=== PATIENT | female | born 1960 | race Caucasian/White ===

== ENCOUNTER 2022-12-14 16:58 | Emergency (ER) | payer BC, MEDICARE ==
[2022-12-14 18:25] LABS: ESTIMATED GFR 10 mL/min (>60)
[2022-12-14] MEDS ORDERED: Insulin Lispro 100 Unit/ML 3 ML KwikPen SUBCUT STA (18:58)
[2022-12-14] MEDS ORDERED: Glucagon,Human Recombinant 1 MG Vial IM PRN (18:58)
[2022-12-14] MEDS ORDERED: Sodium Chloride 0.45% 1,000 ML IV SCH ×2 (19:00)
[2022-12-14] MEDS ORDERED: Insulin Lispro 100 Unit/ML 3 ML KwikPen SUBCUT ONE (19:10)
[2022-12-14] MEDS ORDERED: cefTRIAXone 1 GM Vial IVPUSH STA (19:20)
[2022-12-14] MEDS ORDERED: Aspirin 81 MG Tab.Chew PO STA (19:24)
[2022-12-14] MEDS ORDERED: Potassium Chloride 20 MEQ in Premix Bag 1 BAG IV ONE (19:26)
[2022-12-14] MEDS ORDERED: Heparin Sodium 5,000 Units/ML Vial IVPUSH STA (19:29)
[2022-12-14] MEDS ORDERED: cefTRIAXone 1 GM Vial ONE (19:41)
[2022-12-14] MEDS ORDERED: Heparin Sodium/0.45% NaCl 500 ML IV SCH (19:45)
== END 2022-12-14 20:50 ==
LOC: FB.ED 16:58
DX: E87.6 Hypokalemia (principal); E86.0 Dehydration; E87.1 Hypo-osmolality and hyponatremia; I24.9 Acute ischemic heart disease, unspecified; D64.9 Anemia, unspecified; E11.22 Type 2 diabetes mellitus with diabetic chronic kidney disease; N18.9 Chronic kidney disease, unspecified; E87.8 Other disorders of electrolyte and fluid balance, not elsewhere classified
CPT/HCPCS: 36415; 71045; 80053; 81001; 84484; 85025; 87086; 87088; 87186; 93005; 93010; 96361; 96365; 96368; 96375; 99285; 99285-25; A9270-GY; J0696; J1644; J1815; J3480; J7030

== ENCOUNTER 2022-12-20 12:12 | Inpatient (IN) | payer MEDICARE ==
[2022-12-20] MEDS ORDERED: Lactulose Soln 10 GM/15 ML 15 ML UD Cup PO PRN (16:11)
[2022-12-20] MEDS ORDERED: 50% Dextrose in Water 50 ML Syringe IVPUSH PRN (16:11)
[2022-12-20] MEDS ORDERED: Nitroglycerin 0.4 MG Tab.SL SL PRN (16:11)
[2022-12-20] MEDS ORDERED: Ondansetron 4 MG Tab.DIS PO PRN (16:11)
[2022-12-20] MEDS ORDERED: Glucagon,Human Recombinant 1 MG Vial IM PRN (16:11)
[2022-12-20] MEDS ORDERED: Acetaminophen/HYDROcodone 325-5 MG Tab PO PRN (16:34)
[2022-12-20] MEDS: [UNRECOGNIZED DRUG - OTHER] PO PRN (17:17)
[2022-12-20] MEDS ORDERED: Insulin Lispro 100 Unit/ML 3 ML KwikPen SUBCUT ONE (17:44)
[2022-12-20] MEDS: Insulin Lispro 100 Unit/ML 3 ML KwikPen SUBCUT SCH (17:45)
[2022-12-20] MEDS: Carvedilol 6.25 MG Tab PO SCH (17:48)
[2022-12-20] MEDS ORDERED: Levofloxacin 250 MG Tab PO SCH (18:00)
[2022-12-20] MEDS ORDERED: Insulin Glargine,Human Rec. Analog 100 Units/ML 3 ML Pen SUBCUT SCH (21:00)
[2022-12-20] MEDS ORDERED: Amiodarone 200 MG Tab PO SCH (21:00)
[2022-12-20] MEDS ORDERED: Rosuvastatin 20 MG Tab PO SCH (21:00)
[2022-12-20] MEDS: Apixaban 5 MG Tab PO SCH (21:45)
[2022-12-20] MEDS ORDERED: Insulin Glargine,Human Rec. Analog 100 Units/ML 3 ML Pen SUBCUT ONE (21:48)
[2022-12-21] MEDS: Insulin Lispro 100 Unit/ML 3 ML KwikPen SUBCUT SCH ×2 (07:46→11:06)
[2022-12-21] MEDS: Carvedilol 6.25 MG Tab PO SCH (07:47)
[2022-12-21] MEDS ORDERED: Clopidogrel 75 MG Tab PO SCH (09:00)
[2022-12-21] MEDS: Apixaban 5 MG Tab PO SCH (09:23)
[2022-12-21] MEDS: [UNRECOGNIZED DRUG - OTHER] PO PRN (09:23)
== END 2022-12-21 14:35 | disposition home health service (06) | DRG 947 ==
LOC: FB.MS 15:07
PROVIDERS: ADMIT Family Medicine; ATTEND Family Medicine
DX: R53.1 Weakness (principal); I21.A1 Myocardial infarction type 2; N17.9 Acute kidney failure, unspecified; E87.1 Hypo-osmolality and hyponatremia; L97.921 Non-pressure chronic ulcer of unspecified part of left lower leg limited to breakdown of skin; G61.81 Chronic inflammatory demyelinating polyneuritis; I50.32 Chronic diastolic (congestive) heart failure; I48.20 Chronic atrial fibrillation, unspecified; I13.0 Hypertensive heart and chronic kidney disease with heart failure and stage 1 through stage 4 chronic kidney disease, or unspecified chronic kidney disease; N30.01 Acute cystitis with hematuria; E86.0 Dehydration; E87.6 Hypokalemia; I25.10 Atherosclerotic heart disease of native coronary artery without angina pectoris; E83.42 Hypomagnesemia; L89.151 Pressure ulcer of sacral region, stage 1; L97.511 Non-pressure chronic ulcer of other part of right foot limited to breakdown of skin; I27.20 Pulmonary hypertension, unspecified; N18.32 Chronic kidney disease, stage 3b; E11.22 Type 2 diabetes mellitus with diabetic chronic kidney disease; E11.621 Type 2 diabetes mellitus with foot ulcer; S98.1 Traumatic amputation of one toe; S98.212 Complete traumatic amputation of two or more left lesser toes; Z79.4 Long term (current) use of insulin; Z79.899 Other long term (current) drug therapy
CPT/HCPCS: 82947; 97161-GP; 99305; 99315; A9270-GY; J1815; J1815-GY; Q0162

== ENCOUNTER 2024-03-29 09:30 | Emergency (ER) | payer MEDICARE ==
[2024-03-29 10:32] LABS: BASOPHILS ABSOLUTE AUTO 0.1 x10-3/uL (0.0-0.1); BASOPHILS PERCENT AUTO 1.1 % (0.2-1.5); EOSINOPHILS ABSOLUTE AUTO 0.2 x10-3/uL (0.0-0.8); EOSINOPHILS PERCENT AUTO 3.2 % (0.6-8.1); HEMATOCRIT 30.3 % (34.2-48.2); LYMPHOCYTES ABSOLUTE AUTO 0.8 x10-3/uL (1.0-4.4); LYMPHOCYTES PERCENT AUTO 14.7 % (18.4-52.1); MEAN CORPUSCULAR HEMOGLOBIN 30.3 pg (23.9-33.9); MEAN CORPUSCULAR HGB CONC 32.9 g/dL (31.9-34.8); MEAN CORPUSCULAR VOLUME 92.1 fL (76.7-100.5); MEAN PLATELET VOLUME 8.3 fL (7.1-12.4); MONOCYTES ABSOLUTE AUTO 0.5 x10-3/uL (0.3-1.0); MONOCYTES PERCENT AUTO 9.7 % (4.4-15.7); NEUTROPHILS PERCENT AUTO 71.3 % (30.8-76.2); PLATELET COUNT,PLT 186 x10(3)uL (151-488); RED CELL DISTRIBUTION WIDTH 17.1 % (12.3-16.5); WHITE BLOOD CELL COUNT,WBC 5.6 x10-3/uL (3.0-10.3)
[2024-03-29 10:44] LABS: A/G RATIO 0.7; ALANINE AMINOTRANSFERASE,ALT 32 U/L (12-36); ALBUMIN 2.7 g/dL (3.2-4.6); ALKALINE PHOSPHATASE 111 IU/L (56-112); ASPARTATE AMNIOTRANSFERASE,AST 42 IU/L (5-25); BILIRUBIN TOTAL 0.5 mg/dL (0.1-1.3); BLOOD UREA NITROGEN,BUN 33 mg/dL (7-18); BUN/CREATININE RATIO 14.3 (9-20); CALCIUM 8.7 mg/dL (8.6-10.2); CARBON DIOXIDE,CO2 31 mmol/L (21-32); CHLORIDE,CL 107 mmol/L (100-110); EST CRCL DRUG DOSING (CG) 20.17 mL/min; ESTIMATED GFR 23 mL/min (>60); GLUCOSE RANDOM 112 mg/dL (80-116); MAGNESIUM 2.8 mg/dL (1.8-2.5); POTASSIUM,K 4.5 mmol/L (3.5-5.3); PROTEIN TOTAL,TP 6.5 g/dL (6.0-8.0); SODIUM,NA 144 mmol/L (135-145)
[2024-03-29 10:48] LABS: CREATININE 2.3 mg/dL (0.55-1.02)
[2024-03-29 11:36] LABS: BILIRUBIN,URINE NEGATIVE (NEGATIVE); GLUCOSE,URINE NORMAL (NORMAL); KETONES,URINE NEGATIVE (NEGATIVE); LEUKOCYTE ESTERASE,URINE LARGE (NEGATIVE); NITRITE,URINE POSITIVE (NEGATIVE); OCCULT BLOOD,URINE NEGATIVE (NEGATIVE); PROTEIN,URINE NEGATIVE (NEGATIVE); UROBILINOGEN,URINE NORMAL (NEGATIVE)
[2024-03-29 11:38] LABS: APPEARANCE,URINE CLOUDY (CLEAR); BACTERIA,URINE MANY (NS); COLOR,URINE YELLOW (YELLOW); RBC,URINE 0-5 (0-5); SQUAMOUS EPITHELIAL CELLS,UR RARE (NS,R,O); WBC,URINE >100 (0-5)
[2024-03-29] MEDS: Sodium Chloride 0.9% 500 ML IV ONE (12:12)
[2024-03-29] MEDS: Sodium Chloride 0.9% 1,000 ML IV SCH (12:40)
[2024-03-29] MEDS: cefTRIAXone 1 GM Vial IVPUSH ONE (14:03)
== END 2024-03-29 15:00 ==
LOC: FB.ED 09:30
DX: N39.0 Urinary tract infection, site not specified (principal); R53.1 Weakness; R41.0 Disorientation, unspecified; R79.89 Other specified abnormal findings of blood chemistry; R29.6 Repeated falls; I10 Essential (primary) hypertension; I25.2 Old myocardial infarction; E11.9 Type 2 diabetes mellitus without complications; E66.9 Obesity, unspecified; Z90.49 Acquired absence of other specified parts of digestive tract; Z90.710 Acquired absence of both cervix and uterus; Z68.34 Body mass index [BMI] 34.0-34.9, adult; Z79.899 Other long term (current) drug therapy; Z79.4 Long term (current) use of insulin; Z88.0 Allergy status to penicillin; Z88.1 Allergy status to other antibiotic agents; Z88.6 Allergy status to analgesic agent; Z88.8 Allergy status to other drugs, medicaments and biological substances; Z91.048 Other nonmedicinal substance allergy status
CPT/HCPCS: 36415; 70450; 71045; 72125; 80053; 81001; 83605; 83735; 84484; 85025; 87040; 87086; 87088; 87186; 93005; 93010; 96361; 96374; 99285; J0696; J7030; J7040

== ENCOUNTER 2024-04-04 14:24 | Emergency (ER) | payer MEDICARE ==
[2024-04-04] MEDS ORDERED: Sodium Chloride 0.9% 10 ML Syringe FLUSH PRN (16:11)
[2024-04-04 16:44] LABS: EOSINOPHILS ABSOLUTE AUTO 0.3 x10-3/uL (0.0-0.8); HEMATOCRIT 29.6 % (34.2-48.2); HEMOGLOBIN 9.6 g/dL (11.4-15.5); LYMPHOCYTES ABSOLUTE AUTO 0.7 x10-3/uL (1.0-4.4); LYMPHOCYTES PERCENT AUTO 13.5 % (18.4-52.1); MEAN CORPUSCULAR HEMOGLOBIN 30.1 pg (23.9-33.9); MEAN CORPUSCULAR HGB CONC 32.3 g/dL (31.9-34.8); MEAN CORPUSCULAR VOLUME 93.1 fL (76.7-100.5); MEAN PLATELET VOLUME 8.4 fL (7.1-12.4); MONOCYTES ABSOLUTE AUTO 0.5 x10-3/uL (0.3-1.0); MONOCYTES PERCENT AUTO 10.2 % (4.4-15.7); NEUTROPHILS ABSOLUTE AUTO 3.3 x10-3/uL (1.5-6.3); NEUTROPHILS PERCENT AUTO 68.3 % (30.8-76.2); PLATELET COUNT,PLT 191 x10(3)uL (151-488); RED BLOOD CELL COUNT 3.18 x10(6)uL (3.60-5.20); RED CELL DISTRIBUTION WIDTH 16.7 % (12.3-16.5); WHITE BLOOD CELL COUNT,WBC 4.8 x10-3/uL (3.0-10.3)
[2024-04-04 16:47] LABS: BLOOD UREA NITROGEN,BUN 19 mg/dL (7-18); BUN/CREATININE RATIO 10.6 (9-20); CALCIUM 8.8 mg/dL (8.6-10.2); CARBON DIOXIDE,CO2 34 mmol/L (21-32); CHLORIDE,CL 108 mmol/L (100-110); CREATININE 1.8 mg/dL (0.55-1.02); ESTIMATED GFR 31 mL/min (>60); GLUCOSE RANDOM 114 mg/dL (80-116); POTASSIUM,K 4.2 mmol/L (3.5-5.3); SODIUM,NA 147 mmol/L (135-145)
[2024-04-04 16:55] LABS: APPEARANCE,URINE SLIGHTLY CLOUDY (CLEAR); BACTERIA,URINE MODERATE (NS); BILIRUBIN,URINE NEGATIVE (NEGATIVE); COLOR,URINE YELLOW (YELLOW); GLUCOSE,URINE NORMAL (NORMAL); KETONES,URINE NEGATIVE (NEGATIVE); LEUKOCYTE ESTERASE,URINE LARGE (NEGATIVE); NITRITE,URINE NEGATIVE (NEGATIVE); OCCULT BLOOD,URINE NEGATIVE (NEGATIVE); PROTEIN,URINE NEGATIVE (NEGATIVE); RBC,URINE 0-5 (0-5); SQUAMOUS EPITHELIAL CELLS,UR FEW (NS,R,O); UROBILINOGEN,URINE NORMAL (NEGATIVE); WBC,URINE 30-40 (0-5)
[2024-04-04 16:56] LABS: A/G RATIO 0.7; ALANINE AMINOTRANSFERASE,ALT 27 U/L (12-36); ALBUMIN 2.6 g/dL (3.2-4.6); ALKALINE PHOSPHATASE 96 IU/L (56-112); ASPARTATE AMNIOTRANSFERASE,AST 24 IU/L (5-25); BILIRUBIN TOTAL 0.8 mg/dL (0.1-1.3); PROTEIN TOTAL,TP 6.3 g/dL (6.0-8.0)
[2024-04-04 17:13] LABS: HEMOGLOBIN A1C 7.3 % (<5.7)
[2024-04-04 17:55] LABS: TROPONIN I 57.1 pg/mL (4.0-60.3)
== END 2024-04-04 17:43 ==
LOC: FB.ED 14:24
DX: I48.91 Unspecified atrial fibrillation (principal); I73.9 Peripheral vascular disease, unspecified; I13.0 Hypertensive heart and chronic kidney disease with heart failure and stage 1 through stage 4 chronic kidney disease, or unspecified chronic kidney disease; I50.32 Chronic diastolic (congestive) heart failure; N18.32 Chronic kidney disease, stage 3b; E11.22 Type 2 diabetes mellitus with diabetic chronic kidney disease; E11.69 Type 2 diabetes mellitus with other specified complication; I25.2 Old myocardial infarction; Z88.0 Allergy status to penicillin; Z91.018 Allergy to other foods; Z88.6 Allergy status to analgesic agent; Z88.1 Allergy status to other antibiotic agents; Z88.8 Allergy status to other drugs, medicaments and biological substances; Z79.4 Long term (current) use of insulin; Z79.899 Other long term (current) drug therapy; Z79.01 Long term (current) use of anticoagulants; Z79.02 Long term (current) use of antithrombotics/antiplatelets
CPT/HCPCS: 36415; 71045; 80053; 81001; 83036; 83735; 83880; 84484; 85025; 87086; 99285

== ENCOUNTER 2024-04-12 10:09 | Emergency (ER) | payer MEDICARE ==
[2024-04-12] MEDS: Sodium Chloride 0.9% 1,000 ML IV ONE (11:06)
[2024-04-12 11:09] LABS: BASOPHILS PERCENT AUTO 0.7 % (0.2-1.5); EOSINOPHILS ABSOLUTE AUTO 0.1 x10-3/uL (0.0-0.8); EOSINOPHILS PERCENT AUTO 1.2 % (0.6-8.1); HEMATOCRIT 28.6 % (34.2-48.2); HEMOGLOBIN 9.5 g/dL (11.4-15.5); LYMPHOCYTES ABSOLUTE AUTO 0.7 x10-3/uL (1.0-4.4); LYMPHOCYTES PERCENT AUTO 14.9 % (18.4-52.1); MEAN CORPUSCULAR HGB CONC 33.3 g/dL (31.9-34.8); MEAN CORPUSCULAR VOLUME 93.1 fL (76.7-100.5); MONOCYTES ABSOLUTE AUTO 0.5 x10-3/uL (0.3-1.0); NEUTROPHILS ABSOLUTE AUTO 3.6 x10-3/uL (1.5-6.3); NEUTROPHILS PERCENT AUTO 73.2 % (30.8-76.2); PLATELET COUNT,PLT 198 x10(3)uL (151-488); RED BLOOD CELL COUNT 3.08 x10(6)uL (3.60-5.20); RED CELL DISTRIBUTION WIDTH 16.3 % (12.3-16.5); WHITE BLOOD CELL COUNT,WBC 4.9 x10-3/uL (3.0-10.3)
[2024-04-12 11:18] LABS: A/G RATIO 0.8; ALANINE AMINOTRANSFERASE,ALT 27 U/L (12-36); ALBUMIN 2.8 g/dL (3.2-4.6); ALKALINE PHOSPHATASE 98 IU/L (56-112); ASPARTATE AMNIOTRANSFERASE,AST 31 IU/L (5-25); BILIRUBIN TOTAL 0.7 mg/dL (0.1-1.3); BLOOD UREA NITROGEN,BUN 30 mg/dL (7-18); CALCIUM 8.4 mg/dL (8.6-10.2); CARBON DIOXIDE,CO2 30 mmol/L (21-32); CHLORIDE,CL 106 mmol/L (100-110); EST CRCL DRUG DOSING (CG) 20.17 mL/min; ESTIMATED GFR 23 mL/min (>60); GLUCOSE RANDOM 159 mg/dL (80-116); POTASSIUM,K 3.7 mmol/L (3.5-5.3); PROTEIN TOTAL,TP 6.5 g/dL (6.0-8.0); SODIUM,NA 145 mmol/L (135-145)
[2024-04-12 11:24] LABS: CREATININE 2.3 mg/dL (0.55-1.02)
[2024-04-12 11:42] LABS: C-REACTIVE PROTEIN < 0.50 mg/dL (<0.50); LIPASE < 6 U/L (16-77)
[2024-04-12] MEDS: Polyethylene Glycol 3350 Powder 17 GM Packet PO ONE (13:10)
[2024-04-12] MEDS: Furosemide 40 MG/4 ML VIAL IVPUSH ONE (13:17)
[2024-04-12] MEDS: Sodium Chloride 0.9% 10 ML Syringe FLUSH PRN (13:17)
== END 2024-04-12 14:00 ==
LOC: FB.ED 10:09
DX: I13.0 Hypertensive heart and chronic kidney disease with heart failure and stage 1 through stage 4 chronic kidney disease, or unspecified chronic kidney disease (principal); I50.32 Chronic diastolic (congestive) heart failure; N18.32 Chronic kidney disease, stage 3b; K59.01 Slow transit constipation; I25.2 Old myocardial infarction; I48.91 Unspecified atrial fibrillation; D64.9 Anemia, unspecified; Z88.0 Allergy status to penicillin; Z91.018 Allergy to other foods; Z88.1 Allergy status to other antibiotic agents; Z88.8 Allergy status to other drugs, medicaments and biological substances; Z88.6 Allergy status to analgesic agent; Z79.4 Long term (current) use of insulin; Z79.899 Other long term (current) drug therapy
CPT/HCPCS: 36415; 74176; 80053; 83605; 83690; 83880; 85025; 86140; 96361; 96374; 99285; J1940; J3490; J7030; 99284